=== PATIENT | female | born 1940 | race Caucasian/White ===

== ENCOUNTER 2016-06-12 16:57 | Emergency (ER) | payer MEDICARE ==
[~2016-06-12] VITALS: Ht 162.6 cm; Wt 70.5 kg
[~2016-06-12 16:57] MED LIST: ALTACE 5MG5 MG PO; ASMANEX HF200 MCG/Ac IH; ASPIR-LOW81 MG PO; ASPIRIN 32325 MG/TAB PO; ASPIRIN E.C. 8181 MG PO; CALCIUM 600-D 61 TAB PO; COZAAR100 MG PO; CRESTOR20 MG PO; EFFIENT10 MG PO; FISH OIL CONC1000 MG PO; HALCION0.25 MG PO; HCTZ 25MG25 MG PO; IMDUR 30MG30 MG/TAB PO; LIPITOR40 MG PO; METOCLOPRAMIDE10 MG PO; METOPROLOL SUCC25 MG PO; NEXIUM 40MG40 MG PO; NIASPAN500 MG PO; PLAVIX 75MG TAB75 MG PO; PREVACID 30MG30 MG PO; PROBIOTICA100 Milli1 PO; TIAZAC180 MG PO; VITAMIN C500 MG PO; VYTORIN PO; ZIAC 5/6.25MG T1 TAB PO
[2016-06-12 16:59] VITALS: TEMP 98.3
[2016-06-12 17:46] LABS: BASO % 0.3 % (0.0-2.0); EOS # 0.2 (0.0-0.7); EOS % 2.1 % (0-4.0); GRAN # 6.9 (1.4-6.5); GRAN % 74.2 % (42.2-75.2); HEMATOCRIT 37.9 % (37.0-47.0); HEMOGLOBIN 11.8 g/dl (12.5-16.0); LYMPH # 1.7 (1.2-3.4); LYMPH % 18.1 % (20.0-51.0); MEAN CELL VOLUME 79 fl (80.0-100.0); MEAN CORPUSCULAR HEMOGLOBIN 24 pg (27.0-31.0); MEAN CORPUSCULAR HGB CONC 31 g/dl (33.0-37.0); MEAN PLATELET VOLUME 9.5 fl (7.4-10.4); MONO # 0.5 (0.1-0.6); PLATELET COUNT 256 K/mm3 (130-400); RED BLOOD COUNT 4.82 M/mm3 (4.10-5.30); REDCELL DISTRIBUTION WIDTH-CV 15.2 % (11.5-14.5); WHITE BLOOD COUNT 9.2 K/mm3 (4.8-10.8)
[2016-06-12 17:49] LABS: INR 1.1 (0.8-3.0); PROTHROMBIN TIME 11.8 SECONDS (9.7-12.8)
[2016-06-12 17:51] LABS: PARTIAL THROMBOPLASTIN TIME 27.6 SECONDS (26.0-37.0)
[2016-06-12 17:55] LABS: INFLUENZA B NEGATIVE
[2016-06-12 18:01] LABS: ADJUSTED CALCIUM 9.7 mg/dL (8.4-10.2); ALANINE AMINOTRANSFERASE 33 U/L (9-52); ALBUMIN 4.1 gm/dL (3.5-5.0); ALKALINE PHOSPHATASE 83 U/L (50-136); ANION GAP 10 mmol/L (7-16); BILIRUBIN,TOTAL 0.6 mg/dL (0.0-1.0); BLOOD UREA NITROGEN 15 mg/dL (7-17); C-REACTIVE PROTEIN < 0.5 mg/dL (0.0-0.9); CALCIUM 9.8 mg/dL (8.4-10.2); CARBON DIOXIDE 27 mmol/L (22-30); CHLORIDE 103 mmol/L (98-107); CREATININE, serum 0.64 mg/dL (0.52-1.25); GLUCOSE 104 mg/dL (74-106); POTASSIUM 3.7 mmol/L (3.4-5.0); SODIUM 140 mmol/L (137-145); TOTAL PROTEIN 7.4 gm/dL (6.4-8.2)
[2016-06-12 18:11] LABS: TROPONIN-I < 0.012 ng/mL (0.000-0.034)
[2016-06-12] MEDS ORDERED: PREDNISONE20 MG PO (19:20)
[2016-06-12 19:29] VITALS: BP 136/66; PULSE 68
== END 2016-06-12 19:31 | disposition home or self-care (01) ==
LOC: COL.ER 16:57
PROVIDERS: Family Medicine
DX: R06.00 Dyspnea, unspecified (principal); J45.909 Unspecified asthma, uncomplicated; I25.10 Atherosclerotic heart disease of native coronary artery without angina pectoris; Z95.5 Presence of coronary angioplasty implant and graft

== ENCOUNTER → 2016-08-08 | Outpatient (CLI) | payer MEDICARE ==
[~2016-08-08] MED LIST changes: +PREDNISONE20 MG PO
== END ==
LOC: MC.RAD 14:32
DX: Z12.31 Encounter for screening mammogram for malignant neoplasm of breast (principal)